=== PATIENT | female | born 1950 | race Caucasian/White ===

== ENCOUNTER 2019-02-16 02:29 | Inpatient (IN) ==
[2019-02-16] MEDS ORDERED: Naloxone 0.4 MG/ML INJ IVP PRN (03:17)
[2019-02-16] MEDS ORDERED: Artificial Tears SOLN 15 ML BOTTLE BOTH EYES PRN (03:49)
--- NOTE | 2019-02-16 03:49 | Internal Med History&Physical ---
<Femi Wakefield - Last Filed: 02/16/19 06:24> Date of Encounter: 02/16/19 Time of Encounter: 03:35 Internal Medicine - H&P: HPI Chief complaint: Altered mental status History of present illness: Ms. Cohen is a 68 year old female is transferred from [facility] because of altered mental status. Patient was brought in by EMS because she was found unresponsive. Most of the information was obtained from the ER notes [facility]. Approximately at 7:30 PM, patient took a handful of pills in front of her . called the police, and told his son to go and check on mom. Son called her and her speech was slurred and the phone was disconnected. EMS was called and they found the patient unresponsive wedged between the couch and unstable. Patient had agonal respiration , hypoxic, was given Narcan with no improvement. Patient was intubated and was brought to the ED at the [facility]. Her med list from [facility] showed that the patient had 90 pills filled yesterday of Amytriptaline 150 mg. Initial workup in the ED showed patient afebrile, hypotensive with the BP : 97/66, Pulse: 83, RR: 16,had a WBC 14.2. Patient's potassium was 3.1, EKG showed normal sinus rhythm with prolonged QTc at 486 . Her ABG was normal. Head CT was negative for any intracranial mass or hemorrhages. Patient's UA was positive for nitrite with large amount of leukocyte esterase, urine protein was 100. Patient's tox screen was positive for benzodiazepine. Patient was transferred to [facility] ICU for further management Past Med Surg Social Fam HX - Past Medical History Medical history: hypertension, other Additional medical history: hypothyroid, hydronephrosis, hearing impaired Psychiatric history: depression - Past Surgical History Surgical History: hysterectomy, thyroidectomy Additional surgical history: left neck cancer lesion, thyroid cancer nodule, right hand repair - Social History Smoking Status: Unknown if ever smoked Smokeless Tobacco Status: No Alcohol use: unknown Drug use: none Internal Medicine - H&P: Meds Amitriptyline HCl 150 mg PO HS 02/16/19 [History] Celecoxib [Celebrex] 200 mg PO DAILY 02/16/19 [History] Diclofenac Sodium [Voltaren] 75 mg PO BID 02/16/19 [History] Estradiol 0.5 mg PO DAILY 02/16/19 [History] Ibuprofen [Motrin] 800 mg PO Q8HR 02/16/19 [History] Levothyroxine [Synthroid] 88 mcg PO 0630 02/16/19 [History] Lisinopril [Zestril] 40 mg PO DAILY 02/16/19 [History] Oxybutynin [Ditropan] 5 mg PO HS 02/16/19 [History] Allergy/AdvReac Type Severity Reaction Status Date / Time fentanyl [From Duragesic] AdvReac Mild Itching Verified 02/16/19 00:18 ROS unobtainable: due to endotracheal tube All Systems PM: A 10-system review of systems was performed and is negative for pertinent findings except as documented above in the HPI. - Constitutional Vitals: Pulse Resp BP Pulse Ox 75 14 109/94 100 02/16/19 03:25 02/16/19 03:25 02/16/19 03:25 02/16/19 03:25 Exam: Gen.: Vitals noted. No acute distress. Alert, awake and oriented * [address], and time, well developed, well-nourished resting comfortably in bed. Pleasant. HEENT: oropharynx clear, Normocephalic, atraumatic, MMM Neck: supple, no JVD, no lymphadenopathy, no carotid bruit. Cardiac: RRR, no murmur, +S1/S2, No BLE edema, PMI non-displaced Pulmonary: CTA bilaterally, no wheezes, rales or rhonchi, equal chest expansion, unlabored breathing Abdomen: soft, nontender, BS noted, no guarding, mildly distended. No organomegaly, no pulsatile masses, Skin: warm and dry, no visible lesions. Feels warm, clammy, no rashes, no lesions, no erythema MSK: ROM not assessed. no joint swelling noted, gait not assessed while in bed. Non tender calf or clubbing, no cyanosis/clubbing/ or edema Neuro: A&O, moves all extremities, no focal deficits, sensation intact Psych: Appropriate mood and behavior, normal speech. Internal Med - H&P Results - Labs CBC & Chem 7: 02/16/19 03:57 02/16/19 03:57 - Assessment and Plan (1) Metabolic encephalopathy Current Visit: Yes Status: Acute Assessment and plan: -Likely due to overdosing on BDZ , with UTI on UA -Patient UDS was positive for benzodiazepine. -UA was positive for large leukocyte esterase and nitrites. -Patient's blood glucose was 306. -Her BMP showed hypokalemia at 3.1 -Head CT was negative for any infarcts or hemorrhage -EKG showed QTc prolongation -Patient was found to be unresponsive, had agonal respirations and was intubated and sedated at [facility] ED PLAN: - Supportive care -No indications for flumazenil because we do not know if patient has any history of seizures -Will undergo spontaneous breathing trial when able -Will eventually need a psychiatry evaluation once she is stable to be stepped down to the floor (2) UTI (urinary tract infection) Current Visit: Yes Status: Acute Assessment and plan: -Patient's UA was positive for nitrite and large amount of leukocyte esterase - Patient has an elevated WBC: 14.2 which was likely hemoconcentrated as it got better to 8.5 after fluids -Patient got one-time dose of Rocephin in the ED at [facility] -Unable to do a physical exam on the patient will look for a CVA tenderness or suprapubic pain because patient is intubated and sedated -Will continue her on Rocephin Qualifiers: Qualified Code(s): N39.0 - Urinary tract infection, site not specified; R31.9 - Hematuria, unspecified (3) DVT prophylaxis Current Visit: Yes Status: Acute Assessment and plan: scds - Time Spent With Patient Total time spent is greater than 50% in coordination of care (as documented) at patient's floor/unit and/or counseling patient: <Isaac Peguero A - Last Filed: 02/16/19 07:42> Date of Encounter: 02/16/19 Internal Medicine - H&P: HPI History of present illness: Ms. Cohen is a 68 year old female All Systems PM: A 10-system review of systems was performed and is negative for pertinent findings except as documented above in the HPI. - Constitutional Vitals: Temp Pulse Resp BP Pulse Ox 96.8 F L 102 17 97/63 100 02/16/19 04:35 02/16/19 07:21 02/16/19 06:36 02/16/19 06:36 02/16/19 06:36 Internal Med - H&P Results - Labs CBC & Chem 7: 02/16/19 03:57 02/16/19 03:57 Labs: Short CBC 02/16/19 Range/Units 03:57 WBC 8.5 (4.3-11.1) K/mcL Hgb 9.7 L (11.5-15.4) g/dL Hct 30.9 L (35.3-44.9) % Plt Count 277 (140-400) K/mcL Neutrophils # 6.8 (1.6-8.9) K/mcL BMP 02/16/19 03:57 Sodium 145 D Potassium 4.1 D Chloride 106 Carbon Dioxide 27 BUN 16 Creatinine 0.76 Glucose 96 Calcium 8.6 Cardiac Enzymes 02/16/19 Range/Units 03:57 Troponin I < 0.03 (< 0.04) ng/mL Liver Function 02/16/19 Range/Units 03:57 Total Bilirubin 0.3 (0.3-1.0) mg/dL AST 24 (13-39) Units/L ALT 25 (7-52) Units/L Alkaline Phosphatase 98 (34-104) Units/L Albumin 3.6 (3.5-5.7) g/dL - ABG Interpretation ABG results: 02/16/19 03:51 ABG pH 7.40 ABG pCO2 47 H ABG pO2 240 H ABG HCO3 29 H ABG Total CO2 31 H ABG O2 Saturation 100 H ABG Base Excess 4 H - Impressions ITS Impressions KUB X-Ray 02/16/19 03:49 IMPRESSION: The tip of the enteric tube is in the distal stomach or proximal duodenum. Indeterminate bowel-gas pattern. D/ / Cisco Negrete MD / Cisco Negrete MD Interpreting Provider: Cisco Negrete MD - Time Spent With Patient Total time spent is greater than 50% in coordination of care (as documented) at patient's floor/unit and/or counseling patient: - Attending Attestation I performed a history and physical examination of the patient and discussed her management with the resident. I reviewed the resident's note and agree with the assessment and plan of care. At least 30 minutes of critical care time was spent in the management of this patient. In short patient is a 68-year-old female with a past medical history of hypertension, hyperlipidemia and hypothyroidism who was reportedly found unresponsive by EMS. Per her , with whom she had been fighting with early in the day, had taken a handful of pills just prior to self and is vomiting at approximately 7:30 in the evening. When EMS arrived patient was found wedged between the couch and table and was unresponsive. Was reports tobacco respirations and hypoxia. No improvement with Narcan. Patient intubated and initially was brought to [facility]. Poison control was contacted due to concern for amitriptyline overdose. Initial EKG showed a widened QT interval and 2 A of bicarbonate as well as 2 g of magnesium was given. Patient subsequent to transferred to [facility] for further management. Repeat EKG was obtained here which showed normal QRS duration and improvement in QTC. No further recommendations was given. We will continue supportive for now. Will likely need psych consult once extubated and stable from a medical standpoint.
[2019-02-16 03:54] LABS: ABG Base Excess 4 mEq/L (-2 to 3); ABG HCO3 29 mEq/L (21-27); ABG Oxygen Saturation 100 % (95-98); ABG PCO2 47 mmHg (35-45); ABG PO2 240 mmHg (85-104); ABG TCO2 31 mEq/L (20-26); Blood Gas Modality PRVC; Blood Gas PEEP 5 cm H2O; Blood Gas Respiration Rate 14; Blood Gas VT 400 cc
[2019-02-16 04:10] LABS: Basophils % 0.2 %; Eosinophils % 0.5 %; Hematocrit 30.9 % (35.3-44.9); Hemoglobin 9.7 g/dL (11.5-15.4); Immature Granulocytes % 0.2 % (0-4); Lymphocytes # 1.2 K/mcL (0.6-4.6); Lymphocytes % 14.3 %; Mean Corpuscular HGB Conc 31.4 g/dL (31.6-35.5); Mean Corpuscular Hemoglobin 28.5 pg (28.0-33.3); Mean Corpuscular Volume 90.9 fL (83.0-100.0); Mean Platelet Volume 10.2 fL (9.4-12.4); Monocytes # 0.4 K/mcL (0.0-1.3); Monocytes % 5.1 %; Neutrophils # 6.8 K/mcL (1.6-8.9); Platelet Count 277 K/mcL (140-400); Red Cell Distribution Width 12.9 % (11.5-14.5); Segmented Neutrophils % 79.7 %
[2019-02-16 04:18] LABS: INR 1.1
[2019-02-16 04:21] LABS: Activated Partial Thrombo Time 29.3 Seconds (26.0-36.0)
[2019-02-16 04:37] LABS: Troponin I < 0.03 ng/mL (< 0.04)
[2019-02-16 05:30] LABS: Alanine Aminotransferase 25 Units/L (7-52); Albumin 3.6 g/dL (3.5-5.7); Albumin/Globulin Ratio 1.2 (1.1-2.2); Alkaline Phosphatase 98 Units/L (34-104); Aspartate Amino Transferase 24 Units/L (13-39); BUN/Creatinine Ratio 21 (6-26); Bilirubin,Total 0.3 mg/dL (0.3-1.0); Blood Urea Nitrogen 16 mg/dL (8-23); Calcium 8.6 mg/dL (8.6-10.3); Carbon Dioxide 27 mEq/L (23-29); Chloride 106 mEq/L (98-107); Glucose 96 mg/dL (70-105); Magnesium 2.7 mg/dL (1.6-2.6); Osmolality,Calculated 301 (280-300); Phosphorous 3.1 mg/dL (2.7-4.5); Potassium 4.1 mEq/L (3.5-5.1); Sodium 145 mEq/L (136-145); Total Protein 6.6 g/dL (6.4-8.9); eGFR For Non-African Americans > 60 (> 60)
[2019-02-16] MEDS ORDERED: 0.9 % Sodium Chloride 1,000 ML IVC SCH (05:30)
[2019-02-16] MEDS: Artificial Tears SOLN 15 ML BOTTLE BOTH EYES SCH ×5 (05:34→20:21)
--- NOTE | 2019-02-16 09:09 | Pulmonology Consult Note ---
<AnastaciaSherly manuel M - Last Filed: 02/16/19 09:33> Date of Encounter: 02/16/19 Medications and Allergies Amitriptyline HCl 300 mg PO HS 02/16/19 [History] Diclofenac Sodium [Voltaren] 75 mg PO BID PRN 02/16/19 [History] Estradiol 0.5 mg PO QAM 02/16/19 [History] Ketoconazole 1 appl TP 3XW 02/16/19 [History] Levothyroxine [Synthroid] 88 mcg PO DAILY 02/16/19 [History] Lisinopril [Zestril] 40 mg PO DAILY 02/16/19 [History] Oxybutynin [Ditropan] 5 mg PO HS 02/16/19 [History] Allergy/AdvReac Type Severity Reaction Status Date / Time fentanyl [From Duragesic] AdvReac Mild "ITCH ALL Verified 02/16/19 11:57 OVER" All Systems: The remainder of the systems were reviewed and are negative Physical Examination Vital Signs: Vital Signs, Last 4 Hours Temp Pulse Resp BP Pulse Ox 02/16/19 09:00 95 16 113/67 100 02/16/19 08:00 88 14 119/74 100 02/16/19 07:50 17 115/79 100 02/16/19 07:21 102 02/16/19 07:00 98.5 F 102 16 101/67 100 02/16/19 06:36 17 97/63 100 02/16/19 06:00 78 14 92/55 100 Ventilator Settings Ventilator Settings: Ventilator Settings, Last 8 Hours Ventilator Tidal Volume 400 Setting Ventilator Tidal Volume 400 Setting Ventilator Tidal Volume 400 Setting Ventilator Tidal Volume 400 Setting Ventilator Tidal Volume 400 Setting Ventilator Respiratory Rate 14 Setting Ventilator Respiratory Rate 14 Setting Ventilator Respiratory Rate 14 Setting Ventilator Respiratory Rate 14 Setting Ventilator Respiratory Rate 14 Setting Actual Respiratory Rate 17 Actual Respiratory Rate 17 Actual Respiratory Rate 14 Actual Respiratory Rate 14 Actual Respiratory Rate 14 Actual Respiratory Rate 14 Positive End Expiratory 5 Pressure Positive End Expiratory 5 Pressure Positive End Expiratory 5 Pressure Positive End Expiratory 5 Pressure Positive End Expiratory 5 Pressure Positive End Expiratory 5 Pressure Peak Inspiratory Airway 10 Pressure Peak Inspiratory Airway 10 Pressure Peak Inspiratory Airway 17 Pressure Peak Inspiratory Airway 16 Pressure Peak Inspiratory Airway 16 Pressure Peak Inspiratory Airway 15 Pressure Results - Laboratory Findings CBC and BMP: 02/16/19 03:57 02/16/19 03:57 ABG ABG pH 7.40 pH Units (7.32-7.45) 02/16/19 03:51 ABG pCO2 47 mmHg (35-45) H 02/16/19 03:51 ABG pO2 240 mmHg (85-104) H 02/16/19 03:51 ABG O2 Saturation 100 % (95-98) H 02/16/19 03:51 PT/INR, D-dimer PT 12.0 Seconds (9.4-12.1) 02/16/19 03:57 Abnormal lab findings: Abnormal lab results RBC 3.40 M/mcL (3.82-4.97) L 02/16/19 03:57 Hgb 9.7 g/dL (11.5-15.4) L 02/16/19 03:57 Hct 30.9 % (35.3-44.9) L 02/16/19 03:57 MCHC 31.4 g/dL (31.6-35.5) L 02/16/19 03:57 ABG pCO2 47 mmHg (35-45) H 02/16/19 03:51 ABG pO2 240 mmHg (85-104) H 02/16/19 03:51 ABG HCO3 29 mEq/L (21-27) H 02/16/19 03:51 ABG Total CO2 31 mEq/L (20-26) H 02/16/19 03:51 ABG O2 Saturation 100 % (95-98) H 02/16/19 03:51 ABG Base Excess 4 mEq/L (-2 to 3) H 02/16/19 03:51 Calculated Osmolality 301 (280-300) H 02/16/19 03:57 Magnesium 2.7 mg/dL (1.6-2.6) H 02/16/19 03:57 - Clinical Findings Intake & Output: Intake & Output 02/15/19 02/16/19 02/16/19 23:59 07:59 15:59 Intake Total Output Total 875 / 875 Balance -863 / -863 Weight 68.8 kg Consult Discharge Plan - Plan Referrals: NONE,PCP [Primary Care Provider] - - Attending Attestation I examined this patient and my medical decision-making was reviewed with the Resident Physician. I agree with the documented findings, disposition and treatment plan as described except to the extent set forth below. Patient seen and examined. Labs, radiology, chart personally reviewed. Agree with resident's history and physical, assessment, plan with following comments: [employer] DATA SOFTWARE ENGINEER: Patient follows commands, however she still have weakness and not fully awake and will continue holding Any sedation for the vent synchrony. Pulmonary: Acceptable oxygenation and ventilation and they expect when she is more awake we will be able to extubate her. Cardiovascular: stable and continue to monitor for cardiac function and rhythm because of the side effect of the medication. GI: Nutrition per dietary and GI prophylaxis per routine Heme: DVT prophylaxis per routine Renal; urine out put and renal funtion reviewed Endorcine: blood glucose is monitored Lines: all lines checked and no evidence of infections Skin: skin care to prevent pressure ulcers per nursing routine care Patient will need psych consult when we extubate. <Jose L Mchugh - Last Filed: 02/16/19 14:57> Date of Encounter: 02/16/19 Time of Encounter: 09:09 Assessment and Plan (1) Drug overdose Current Visit: Yes Status: Acute Patient took approximately 50 tablets of 150 mg amitriptyline She was found unresponsive by EMS and was transported to [place] ED She was intubated and transferred to [facility] ICU Poison control was consulted early in admission and recommended supportive care She was successfully weaned off sedation and extubated this a.m. and is currently hemodynamically stable and alert and oriented Psychiatry evaluated the patient and recommended psychiatric admission once pat ient is stable Plan to monitor for 1 more day due to prolonged half-life of amitriptyline Anticipate transfer from ICU to geriatric psychiatry unit when stable Qualifiers: Encounter type: initial encounter Injury intent: intentional self-harm Qualified Code(s): T50.902A - Poisoning by unspecified drugs, medicaments and biological substances, intentional self-harm, initial encounter (2) Suicide attempt by drug ingestion Current Visit: Yes Status: Acute Patient states she does not want to , states she was trying to go to sleep However she did take a extreme amount of medication and did so during an emotional fight with She also has a history of depression, and mentions previous similar occurrences to this episode We do not however have any documentation of previous hospitalizations for suicide attempts or psychiatric evaluation Psychiatry following, appreciate recommendations Qualifiers: Encounter type: initial encounter Qualified Code(s): T50.902A - Poisoning by unspecified drugs, medicaments and biological substances, intentional self- harm, initial encounter (3) Metabolic encephalopathy Current Visit: Yes Status: Resolved Patient was originally unresponsive secondary to medication overdose Patient was successfully weaned off sedation this morning and is currently alert and oriented Encephalopathy resolved, we will continue to monitor (4) UTI (urinary tract infection) Current Visit: Yes Status: Acute Urinalysis on admission demonstrated elevated protein, glucose, ketones, blood, nitrites, leukocyte esterase, red blood cells, white blood cells, bacteria She is not currently complaining of any dysuria, hematuria, pyuria, any other urinary issues She was started on Rocephin at admission We will likely continue Rocephin for 5 day course which will be completed on 02/20/19 Qualifiers: Urinary tract infection type: acute cystitis Hematuria presence: without hematuria Qualified Code(s): N30.00 - Acute cystitis without hematuria (5) DVT prophylaxis Current Visit: Yes Status: Acute Subcutaneous heparin History of Present Illness Consult date: 02/16/19 Requesting physician: Isaac Peguero Reason for consult: other (Intubation) Chief complaint: Intentional overdose History of present illness: Patient is a 68-year-old female with a past medical history of hypertension, hypothyroidism, depression. Family called police after patient took a large amount of amitriptyline in front of her . When EMS responded the patient was found unresponsive. She was taken to [facility] ED and was intubated due to respiratory distress, either via squad or at ED. Patient was then transferred to [facility] ICU for vent management and intentional overdose management. Poison control was called who recommended supportive care. Patient was managed on the vent this morning and was weaned o ff sedation and eventually successfully extubated. After extubation the patient was found to be alert and oriented, hemodynamically stable, and psychiatry was consulted for evaluation. On speaking with the patient she states that she has been having marital issues at home with her and has been feeling depressed. She states she took approximately 50 pills of amitriptyline in order to sleep not to kill herself. Apparently she then attempted to vomit but was unable to. That is apparently last thing she remembers. She also vaguely mentions some previous similar occurrences. Past Med Surg Social Fam HX - Past Medical History Medical history: hypertension, other Additional medical history: hypothyroid, hydronephrosis, hearing impaired Psychiatric history: depression - Past Surgical History Surgical History: hysterectomy, thyroidectomy Additional surgical history: left neck cancer lesion, thyroid cancer nodule, right hand repair - Social History Smoking Status: Unknown if ever smoked Smokeless Tobacco Status: No Alcohol use: unknown Drug use: none All Systems: The remainder of the systems were reviewed and are negative - Constitutional Constitutional: no chills, no fever(s) - EENT Nose, mouth and throat: abnormal hearing, no dizziness, no headache(s) - Cardiovascular Cardiovascular: no chest pain, no dyspnea, no irregular heart rhythm - Respiratory Respiratory: no cough, no dyspnea on exertion - Gastrointestinal Gastrointestinal: no abdominal pain, no nausea, no vomiting - Genitourinary Genitourinary: no difficulty urinating, no urinary incontinence - Musculoskeletal Musculoskeletal: no weakness, no numbness - Integumentary Integumentary: no erythema, no rash - Neurological Neurological: no abnormal speech, no focal weakness - Psychiatric Psychiatric: depression, no suicidal ideation - Endocrine Endocrine: no fatigue, no palpitations - Hematologic/Lymphatic Hematologic/Lymphatic: no easy bruising, no lymphadenopathy Physical Examination Vital Signs: Vital Signs, Last 4 Hours Temp Pulse Resp BP Pulse Ox 02/16/19 08:00 88 14 119/74 100 02/16/19 07:50 17 115/79 100 02/16/19 07:21 102 02/16/19 07:00 98.5 F 102 16 101/67 100 02/16/19 06:36 17 97/63 100 02/16/19 06:00 78 14 92/55 100 General appearance: no acute distress Eyes: nonicteric ENT: oropharynx moist Neck: supple Effort: normal Inspection: normal Auscultation: bilateral: clear Cardiovascular: regular rate and rhythm Gastrointestinal: normoactive bowel sounds Integumentary: other (There is a small patch of erythema located at antecubital IV site on right upper extremity, skin otherwise normal) Extremities: no cyanosis, no edema Musculoskeletal: no deformities Gait: normal posture normal mental status, non-focal exam, other (Patient is alert and oriented) depressed, tearful, other (Patient denies suicidal ideation. Does admit to depression.) Ventilator Settings Ventilator Settings: Ventilator Settings, Last 8 Hours Ventilator Tidal Volume 400 Setting Ventilator Tidal Volume 400 Setting Ventilator Tidal Volume 400 Setting Ventilator Tidal Volume 400 Setting Ventilator Tidal Volume 400 Setting Ventilator Respiratory Rate 14 Setting Ventilator Respiratory Rate 14 Setting Ventilator Respiratory Rate 14 Setting Ventilator Respiratory Rate 14 Setting Ventilator Respiratory Rate 14 Setting Actual Respiratory Rate 17 Actual Respiratory Rate 17 Actual Respiratory Rate 14 Actual Respiratory Rate 14 Actual Respiratory Rate 14 Actual Respiratory Rate 14 Positive End Expiratory 5 Pressure Positive End Expiratory 5 Pressure Positive End Expiratory 5 Pressure Positive End Expiratory 5 Pressure Positive End Expiratory 5 Pressure Positive End Expiratory 5 Pressure Peak Inspiratory Airway 10 Pressure Peak Inspiratory Airway 10 Pressure Peak Inspiratory Airway 17 Pressure Peak Inspiratory Airway 16 Pressure Peak Inspiratory Airway 16 Pressure Peak Inspiratory Airway 15 Pressure Results - Laboratory Findings CBC and BMP: 02/16/19 03:57 02/16/19 03:57 ABG ABG pH 7.40 pH Units (7.32-7.45) 02/16/19 03:51 ABG pCO2 47 mmHg (35-45) H 02/16/19 03:51 ABG pO2 240 mmHg (85-104) H 02/16/19 03:51 ABG O2 Saturation 100 % (95-98) H 02/16/19 03:51 PT/INR, D-dimer PT 12.0 Seconds (9.4-12.1) 02/16/19 03:57 Abnormal lab findings: Abnormal lab results RBC 3.40 M/mcL (3.82-4.97) L 02/16/19 03:57 Hgb 9.7 g/dL (11.5-15.4) L 02/16/19 03:57 Hct 30.9 % (35.3-44.9) L 02/16/19 03:57 MCHC 31.4 g/dL (31.6-35.5) L 02/16/19 03:57 ABG pCO2 47 mmHg (35-45) H 02/16/19 03:51 ABG pO2 240 mmHg (85-104) H 02/16/19 03:51 ABG HCO3 29 mEq/L (21-27) H 02/16/19 03:51 ABG Total CO2 31 mEq/L (20-26) H 02/16/19 03:51 ABG O2 Saturation 100 % (95-98) H 02/16/19 03:51 ABG Base Excess 4 mEq/L (-2 to 3) H 02/16/19 03:51 Calculated Osmolality 301 (280-300) H 02/16/19 03:57 Magnesium 2.7 mg/dL (1.6-2.6) H 02/16/19 03:57 - Diagnostic Findings Chest x-ray: report reviewed, image reviewed (ET tube in place, approximately 2- 3 cm above the valdemar. Chest x-ray otherwise normal.) - Clinical Findings Intake & Output: Intake & Output 02/15/19 02/16/19 02/16/19 23:59 07:59 15:59 Intake Total Output Total 875 / 875 Balance -863 / -863 Weight 68.8 kg
[2019-02-16] MEDS: cefTRIAXone 1,000 MG in Water for inj. (sterile) 20 ML 10 ML IVPB SCH (09:16)
[2019-02-16] MEDS: Chlorhexidine Rinse 15 ML MOUTHWASH MM SCH ×2 (09:17→20:21)
[2019-02-16] MEDS: Pantoprazole 40 MG VIAL IVP SCH (12:04)
--- NOTE | 2019-02-16 13:43 | Consult Note ---
Date of Encounter: 02/17/19 Time of Encounter: 13:00 Assessment & Recommendation (1) Major depressive disorder, recurrent, severe w/o psychotic behavior Current visit: Yes Status: Acute Assessment & Recommendation: -Although patient currently denies that her recent overdose was a suicide attempt, the severity of the attempt is highly suspicious for an intentional overdose, as she continues to report she took 50 of her amitriptyline. As such, she is seen to need further psychiatric tables patient on an inpatient unit. Recommend transfer to [facility] -Recommend not restarting amitriptyline due to recent overdose -Continue one-to-one sitter -Recommend marital counseling for patient and her -Will continue to follow while inpatient History of Present Illness Patient: new to practice Requesting Physician: Venita Ervin MD Reason for consult: Overdose History of present illness: Ms. Cohen is a 68 year old female with a past psychiatric history of depression who is admitted on 2018 and who is consulted to psychiatry for a possible intentional overdose. Records state that patient had been fighting with her family all day. At around 1930, reports state that patient painful pills in front of her and then attempted to vomit them up. and called the police, and they cleared the home. then stated he wanted divorce, packed up his things, and left. He asked his son to call his mother at some point in the night to check up on her. Reports state that when so-called, his mother's speech was slurred. EMS was then called to the home, who found the patient unresponsive with agonal respirations and hypoxic. Patient was given Narcan which did not improve her status. She was then intubated and taken to the hospital. EMS brought an empty pill of amitriptyline filled in December of this year. With her home pharmacy shows that patient also received a prescription for amitriptyline 150 mg dispense 90 the day of admission. Report states the patient said that she took about 50 pills in order for her to sleep and not to . Today, nursing staff reports that her daughter does confirm that the patient did try to vomit after she took the pills but was unable to. When speaking with the patient, she reports that her got mad yesterday because she put the wrong gas and the lawnmower. She reports that they have had marital discourse for the past few weeks at least. She explains, "I cannot do anything right." She reports that she got so mad that she believes she lost her memory. She explains that when she gets very angry, she "cannot think, cannot talk." He reports that she is unable to remember taking the medication and was not able to tell this provider how many she took. When asked if she went to harm herself yesterday, she says "I do not think so." She continues, "I do not want to kill myself." She does admit that her wants a divorce and that she does not believe in divorce. She does explain that yesterday, she "wanted some rest and have a nice conversation with him." When asked why she would have taken so many pills, she states, "I do not think I was thinking right." Patient does admit to having a past history of depression and is prescribed amitriptyline by her PCP. She does admit to having a large pill that she breaks in half for anxiety, stating she received a prescription "a long time ago." She does not know the name of this pill. She reports taking it at times, though rarely and not every day. Patient denies a history of suicidal ideation. She denies a history of suicidal attempt. She reports protective factors of her grandchildren, not wanting to , thinking it is "stupid for people to try to kill themselves." She reports that she has 2 old rifles at home that do not shoot, and she denies ammunition for these guns. She does report that her has a pistol but reports that it is locked up, and she does not have access to the chen. She explains that, currently, she does not know if she is depressed. She is slightly perseverative on her 's ill actions and her irritation with him. She reports that she is "mixed" anxiety. She admits to recent poor sleep. She denies issues of appetite. She denies current SI, HI, and AVH. CC: Venita Ervin MD Past Med Surg Social Fam HX - Past Medical History Medical history: hypertension, other - Past Psychiatric History Psychiatric history: Reports: depression. Denies: prior suicide attempt Family psychiatric history: Unknown Family History of Suicide: Unknown - Past Surgical History Surgical History: hysterectomy, thyroidectomy - Social History Smoking Status: Never smoker Smokeless Tobacco Status: No Alcohol use: none Drug use: none Occupational status: other Current living situation: With Family Activity Level: Other Medications & Allergies Ketoconazole 1 appl TP 3XW 02/16/19 [History] Levothyroxine [Synthroid] 88 mcg PO DAILY 02/16/19 [History] Lisinopril [Zestril] 40 mg PO DAILY 02/16/19 [History] Oxybutynin [Ditropan] 5 mg PO HS 02/16/19 [History] RX: Amitriptyline HCl 300 mg PO HS 02/16/19 [History] RX: Diclofenac Sodium [Voltaren] 75 mg PO BID PRN 02/16/19 [History] RX: Estradiol 0.5 mg PO QAM 02/16/19 [History] Allergy/AdvReac Type Severity Reaction Status Date / Time fentanyl [From Duragesic] AdvReac Mild "ITCH ALL Verified 02/16/19 11:57 OVER" Review of Systems Ears, Nose, Throat: Reports: other (Dryness of the lips) Psychiatric: Reports: depression (Does not know she is depressed), anxiety, abnormal sleep pattern. Denies: suicidal ideation, change in appetite, homicidal ideation, auditory hallucinations, visual hallucinations Psychiatry Exam - Constitutional Vitals: Temp Pulse Resp BP Pulse Ox 98.5 F 89 20 125/83 100 02/16/19 11:00 02/16/19 12:00 02/16/19 12:00 02/16/19 12:00 02/16/19 12:00 General appearance: age & developmentally appropriate, well-groomed, well- nourished, average Additional observations: Dryness to lips noted Old, uneven eyeliner noted - Musculoskeletal Gait: other (Not assessed) Station: relaxed Strength & Tone: normal for patient (Grossly) - Psychiatric Patient Orientation: Yes Person, Yes Time, Yes Place, Yes Circumstance Level of alertness: Alert, Follows commands Behavior: calm, cooperative Psychomotor activity: Normal Eye Contact: Maintains Eye Contact Mood Description: Euthymic/stable Patient description of mood: "I do not know" Affect description: congruent with mood, full range Speech Volume: Soft/Quiet Speech pattern: normal rate, normal rhythm, normal tone, fluent, spontaneous, appropriate, garbled (mildly, likely due to dryness of the mouth) Language & Vocabulary: consistent with education Thought Process: Logical, Linear, Goal Oriented, Perseveration (spoke often about marital disputes, even when this provider asked about other topics. Did not appear to be due to disorganization.) Thought Content: No Suicidal ideation, No Homicidal ideation, No Overt delusions Perceptual Disturbances: No Reacting to internal stimuli, No Auditory hallucinations, No Visual hallucinations Attention Span Ability: Capable of Focused Attention Memory Description: Grossly Intact Patient Reliability: Questionable Historian Fund of knowledge: Yes aware of current events Intelligence Estimate: Average Judgment: Limited Insight: Partial Results - Drug Levels and Toxicology Drug Levels and Toxicology: None noted this a.m. - Labs Labs: Laboratory Last Values WBC 8.5 K/mcL (4.3-11.1) 02/16/19 03:57 RBC 3.40 M/mcL (3.82-4.97) L 02/16/19 03:57 Hgb 9.7 g/dL (11.5-15.4) L 02/16/19 03:57 Hct 30.9 % (35.3-44.9) L 02/16/19 03:57 MCV 90.9 fL (83.0-100.0) 02/16/19 03:57 MCH 28.5 pg (28.0-33.3) 02/16/19 03:57 MCHC 31.4 g/dL (31.6-35.5) L 02/16/19 03:57 RDW 12.9 % (11.5-14.5) 02/16/19 03:57 Plt Count 277 K/mcL (140-400) 02/16/19 03:57 MPV 10.2 fL (9.4-12.4) 02/16/19 03:57 Immature Gran % 0.2 % (0-4) 02/16/19 03:57 Seg Neutrophils % 79.7 % 02/16/19 03:57 Lymphocytes % 14.3 % 02/16/19 03:57 Monocytes % 5.1 % 02/16/19 03:57 Eosinophils % 0.5 % 02/16/19 03:57 Basophils % 0.2 % 02/16/19 03:57 Neutrophils # 6.8 K/mcL (1.6-8.9) 02/16/19 03:57 Lymphocytes # 1.2 K/mcL (0.6-4.6) 02/16/19 03:57 Monocytes # 0.4 K/mcL (0.0-1.3) 02/16/19 03:57 Eosinophils # 0.0 K/mcL (0.0-0.6) 02/16/19 03:57 Basophils # 0.0 K/mcL (0.0-0.2) 02/16/19 03:57 PT 12.0 Seconds (9.4-12.1) 02/16/19 03:57 INR 1.1 02/16/19 03:57 APTT 29.3 Seconds (26.0-36.0) 02/16/19 03:57 ABG pH 7.40 pH Units (7.32-7.45) 02/16/19 03:51 ABG pCO2 47 mmHg (35-45) H 02/16/19 03:51 ABG pO2 240 mmHg (85-104) H 02/16/19 03:51 ABG HCO3 29 mEq/L (21-27) H 02/16/19 03:51 ABG Total CO2 31 mEq/L (20-26) H 02/16/19 03:51 ABG O2 Saturation 100 % (95-98) H 02/16/19 03:51 ABG Base Excess 4 mEq/L (-2 to 3) H 02/16/19 03:51 Lorenzo Test N/A 02/16/19 03:51 Respiration Rate 14 02/16/19 03:51 O2 Delivery Device Adult Vent 02/16/19 03:51 Blood Gas Modality PRVC 02/16/19 03:51 Inspired O2 60.0 (1-15=lpm th79-148=%) 02/16/19 03:51 Tidal Volume 400 cc 02/16/19 03:51 PEEP 5 cm H2O 02/16/19 03:51 Sodium 145 mEq/L (136-145) D 02/16/19 03:57 Potassium 4.1 mEq/L (3.5-5.1) D 02/16/19 03:57 Chloride 106 mEq/L (98-107) 02/16/19 03:57 Carbon Dioxide 27 mEq/L (23-29) 02/16/19 03:57 BUN 16 mg/dL (8-23) 02/16/19 03:57 Creatinine 0.76 mg/dL (0.60-1.20) 02/16/19 03:57 Est GFR ( Amer) > 60 (> 60) 02/16/19 03:57 Est GFR (Non-Af Amer) > 60 (> 60) 02/16/19 03:57 BUN/Creatinine Ratio 21 (6-26) 02/16/19 03:57 Glucose 96 mg/dL (70-105) 02/16/19 03:57 POC Glucose 80 mg/dL (70-99) 02/16/19 04:37 Calculated Osmolality 301 (280-300) H 02/16/19 03:57 Calcium 8.6 mg/dL (8.6-10.3) 02/16/19 03:57 Phosphorus 3.1 mg/dL (2.7-4.5) 02/16/19 03:57 Magnesium 2.7 mg/dL (1.6-2.6) H 02/16/19 03:57 Total Bilirubin 0.3 mg/dL (0.3-1.0) 02/16/19 03:57 AST 24 Units/L (13-39) 02/16/19 03:57 ALT 25 Units/L (7-52) 02/16/19 03:57 Alkaline Phosphatase 98 Units/L (34-104) 02/16/19 03:57 Troponin I < 0.03 ng/mL (< 0.04) 02/16/19 03:57 Serum Total Protein 6.6 g/dL (6.4-8.9) 02/16/19 03:57 Albumin 3.6 g/dL (3.5-5.7) 02/16/19 03:57 Globulin 3.0 g/dL (2.4-3.5) 02/16/19 03:57 Albumin/Globulin Ratio 1.2 (1.1-2.2) 02/16/19 03:57 - Impressions Impressions KUB X-Ray 02/16/19 03:49 IMPRESSION: The tip of the enteric tube is in the distal stomach or proximal duodenum. Indeterminate bowel-gas pattern. D/ / Cisco Negrete MD / Cisco Negrete MD Interpreting Provider: Cisco Negrete MD Consult Discharge Plan - Plan Referrals: NONE,PCP [Primary Care Provider] - - Attending Attestation I examined this patient and my medical decision-making was reviewed with the Resident Physician. I agree with the documented findings, disposition and treatment plan as described except to the extent set forth below. Spoke with client and this afternoon and they are in agreement with a mental health admission. Discussed a [facility] psych facility given client's age and they are open to the idea but would prefer a facility closer to their home if possible. Recommend a social work consult to look into placement options.
--- NOTE | 2019-02-16 15:22 | Electrocardiograph Report ---
[place] [address] Test Date: 2019-02-16 Pat Name: Blanca Cohen Department: 109 Room: [facility] Gender: F Hospital Admitting Clerk: : 1950 Requested By: Isaac Peguero Order Number: [id number] Reading MD: Russell Mcneal Measurements Intervals [place] Rate: 76 P: 70 FL: 187 QRS: -6 QRSD: 101 T: 70 QT: 438 QTc: 469 Interpretive Statements SINUS RHYTHM Electronically Signed On 02-16-2019 15:20:53 EDT by Russell Mcneal
[2019-02-16] MEDS: *HR* Heparin 5,000 UNIT/ML VIAL SQ SCH (18:04)
[2019-02-17] MEDS: Artificial Tears SOLN 15 ML BOTTLE BOTH EYES SCH ×2 (04:27→08:34)
[2019-02-17] MEDS ORDERED: Acetaminophen 325 MG TABLET PO PRN (04:46)
[2019-02-17 04:56] LABS: Basophils % 0.6 %; Eosinophils # 0.3 K/mcL (0.0-0.6); Eosinophils % 4.1 %; Hematocrit 32.3 % (35.3-44.9); Hemoglobin 10.1 g/dL (11.5-15.4); Immature Granulocytes % 0.3 % (0-4); Lymphocytes # 1.5 K/mcL (0.6-4.6); Lymphocytes % 22.3 %; Mean Corpuscular HGB Conc 31.3 g/dL (31.6-35.5); Mean Corpuscular Volume 92.8 fL (83.0-100.0); Mean Platelet Volume 10.3 fL (9.4-12.4); Monocytes # 0.4 K/mcL (0.0-1.3); Monocytes % 5.6 %; Neutrophils # 4.5 K/mcL (1.6-8.9); Platelet Count 260 K/mcL (140-400); Red Blood Count 3.48 M/mcL (3.82-4.97); Red Cell Distribution Width 13.3 % (11.5-14.5); Segmented Neutrophils % 67.1 %
[2019-02-17] MEDS: *HR* Heparin 5,000 UNIT/ML VIAL SQ SCH ×2 (05:21→18:02)
[2019-02-17 05:22] LABS: Blood Urea Nitrogen 12 mg/dL (8-23); Calcium 8.4 mg/dL (8.6-10.3); Carbon Dioxide 27 mEq/L (23-29); Chloride 106 mEq/L (98-107); Glucose 91 mg/dL (70-105); Osmolality,Calculated 291 (280-300); Potassium 3.6 mEq/L (3.5-5.1); Sodium 141 mEq/L (136-145)
[2019-02-17 05:29] LABS: BUN/Creatinine Ratio 19 (6-26); eGFR For Non-African Americans > 60 (> 60)
--- NOTE | 2019-02-17 08:05 | Pulmonology Progress Note ---
<DaniellaSherly M - Last Filed: 02/17/19 10:29> Date of Encounter: 02/17/19 Objective PUL Vital signs: Last Vital Signs Temp 98.7 F 02/17/19 08:00 Pulse 88 02/17/19 09:00 Resp 20 02/17/19 09:00 BP 112/73 02/17/19 09:00 Pulse Ox 98 02/17/19 09:00 Results - Laboratory Findings CBC and BMP: 02/17/19 04:33 02/17/19 04:33 ABG ABG pH 7.40 pH Units (7.32-7.45) 02/16/19 03:51 ABG pCO2 47 mmHg (35-45) H 02/16/19 03:51 ABG pO2 240 mmHg (85-104) H 02/16/19 03:51 ABG O2 Saturation 100 % (95-98) H 02/16/19 03:51 PT/INR, D-dimer PT 12.0 Seconds (9.4-12.1) 02/16/19 03:57 Abnormal lab findings: Abnormal lab results RBC 3.48 M/mcL (3.82-4.97) L 02/17/19 04:33 Hgb 10.1 g/dL (11.5-15.4) L 02/17/19 04:33 Hct 32.3 % (35.3-44.9) L 02/17/19 04:33 MCHC 31.3 g/dL (31.6-35.5) L 02/17/19 04:33 ABG pCO2 47 mmHg (35-45) H 02/16/19 03:51 ABG pO2 240 mmHg (85-104) H 02/16/19 03:51 ABG HCO3 29 mEq/L (21-27) H 02/16/19 03:51 ABG Total CO2 31 mEq/L (20-26) H 02/16/19 03:51 ABG O2 Saturation 100 % (95-98) H 02/16/19 03:51 ABG Base Excess 4 mEq/L (-2 to 3) H 02/16/19 03:51 Calcium 8.4 mg/dL (8.6-10.3) L 02/17/19 04:33 Magnesium 2.7 mg/dL (1.6-2.6) H 02/16/19 03:57 - Clinical Findings Intake & Output: Intake & Output 02/16/19 02/17/19 02/17/19 23:59 07:59 15:59 Intake Total 480 / 480 120 / 120 Output Total 172 / 172 875 / 875 Balance 308 / 308 -875 / -875 120 / 120 Weight 68.8 kg Consult Discharge Plan - Plan Referrals: NONE,PCP [Primary Care Provider] - - Attending Attestation I examined this patient and my medical decision-making was reviewed with the Resident Physician. I agree with the documented findings, disposition and treatment plan as described except to the extent set forth below. Patient seen and examined. Labs, radiology, chart personally reviewed. Agree with resident's history and physical, assessment, plan with following comments: [employer]: Patient follows commands, patient denies any suicidal thought that this time. However she needs to be cleared by the psychiatrist. As far as the antidepressant this will be deferred to the psychiatrist. Pulmonary: Acceptable oxygenation and ventilation and she was extubated yesterday Cardiovascular: stable and there is no any signs of any anticholinergic or cardiac events and poision control was notified GI: Nutrition per dietary and GI prophylaxis per routine Heme: DVT prophylaxis per routine Renal; urine out put and renal funtion reviewed. Garza catheter can be removed Endorcine: blood glucose is monitored Lines: all lines checked and no evidence of infections Skin: skin care to prevent pressure ulcers per nursing routine care Patient can be transferred to the floor <Jose L Mchugh - Last Filed: 02/17/19 19:19> Date of Encounter: 02/17/19 Time of Encounter: 08:05 Assessment and Plan (1) Drug overdose Current Visit: Yes Status: Resolved Patient took approximately 50 tablets of 150 mg amitriptyline She was found unresponsive by EMS and was transported to [facility] She was intubated and transferred to [facility] ICU Poison control was consulted early in admission and recommended supportive care She was successfully weaned off sedation and extubated and is currently hemodynamically stable and alert and oriented Psychiatry evaluated the patient and recommended psychiatric admission once patient is stable Transferred to floor Qualifiers: Encounter type: initial encounter Injury intent: intentional self-harm Qualified Code(s): T50.902A - Poisoning by unspecified drugs, medicaments and biological substances, intentional self-harm, initial encounter (2) Suicide attempt by drug ingestion Current Visit: Yes Status: Acute Patient states she does not want to , states she was trying to go to sleep However she did take a extreme amount of medication and did so during an em otional fight with She also has a history of depression, and mentions previous similar occurrences to this episode We do not however have any documentation of previous hospitalizations for latasha cide attempts or psychiatric evaluation Psychiatry following, appreciate recommendations Qualifiers: Encounter type: initial encounter Qualified Code(s): T50.902A - Poisoning by unspecified drugs, medicaments and biological substances, intentional self- harm, initial encounter (3) Metabolic encephalopathy Current Visit: Yes Status: Resolved Patient was originally unresponsive secondary to medication overdose Patient was successfully weaned off sedation and is currently alert and oriented Encephalopathy resolved (4) UTI (urinary tract infection) Current Visit: Yes Status: Ruled-out Ruled out, asymptomatic bacteriuria, Rocephin discontinued Qualifiers: Urinary tract infection type: acute cystitis Hematuria presence: without hematuria Qualified Code(s): N30.00 - Acute cystitis without hematuria (5) DVT prophylaxis Current Visit: Yes Status: Acute Subcutaneous heparin Subjective Principal diagnosis: Overdose Interval history: Patient has no acute complaints this morning, states she wants to go home. I informed her psychiatry is recommended she stay in the hospital. Objective PUL Vital signs: Last Vital Signs Temp 97.8 F 02/17/19 04:00 Pulse 87 02/17/19 07:24 Resp 13 02/17/19 07:24 BP 130/80 02/17/19 07:24 Pulse Ox 97 02/17/19 07:24 General appearance: no acute distress Eyes: nonicteric ENT: oropharynx moist Neck: supple Effort: normal Auscultation: bilateral: clear Cardiovascular: regular rate and rhythm Gastrointestinal: normoactive bowel sounds, soft, non-tender, non-distended Integumentary: normal Extremities: no cyanosis Musculoskeletal: no deformities Gait: normal posture normal mental status, non-focal exam depressed Results - Laboratory Findings CBC and BMP: 02/17/19 04:33 02/17/19 04:33 ABG ABG pH 7.40 pH Units (7.32-7.45) 02/16/19 03:51 ABG pCO2 47 mmHg (35-45) H 02/16/19 03:51 ABG pO2 240 mmHg (85-104) H 02/16/19 03:51 ABG O2 Saturation 100 % (95-98) H 02/16/19 03:51 PT/INR, D-dimer PT 12.0 Seconds (9.4-12.1) 02/16/19 03:57 Abnormal lab findings: Abnormal lab results RBC 3.48 M/mcL (3.82-4.97) L 02/17/19 04:33 Hgb 10.1 g/dL (11.5-15.4) L 02/17/19 04:33 Hct 32.3 % (35.3-44.9) L 02/17/19 04:33 MCHC 31.3 g/dL (31.6-35.5) L 02/17/19 04:33 ABG pCO2 47 mmHg (35-45) H 02/16/19 03:51 ABG pO2 240 mmHg (85-104) H 02/16/19 03:51 ABG HCO3 29 mEq/L (21-27) H 02/16/19 03:51 ABG Total CO2 31 mEq/L (20-26) H 02/16/19 03:51 ABG O2 Saturation 100 % (95-98) H 02/16/19 03:51 ABG Base Excess 4 mEq/L (-2 to 3) H 02/16/19 03:51 Calcium 8.4 mg/dL (8.6-10.3) L 02/17/19 04:33 Magnesium 2.7 mg/dL (1.6-2.6) H 02/16/19 03:57 - Clinical Findings Intake & Output: Intake & Output 02/16/19 02/17/19 02/17/19 23:59 07:59 15:59 Intake Total 480 / 480 Output Total 172 / 172 875 / 875 Balance 308 / 308 -875 / -875 Weight 68.8 kg
[2019-02-17] MEDS: Chlorhexidine Rinse 15 ML MOUTHWASH MM SCH (08:34)
[2019-02-17] MEDS: Pantoprazole 40 MG VIAL IVP SCH (08:43)
[2019-02-17] MEDS: cefTRIAXone 1,000 MG in Water for inj. (sterile) 20 ML 10 ML IVPB SCH (08:43)
[2019-02-17] MEDS ORDERED: Potassium Effervescent 25 MEQ TABLET.EFF PO ONE (11:15)
[2019-02-17] MEDS ORDERED: Naloxone 0.4 MG/ML INJ IVP PRN (12:40)
--- NOTE | 2019-02-17 15:29 | Electrocardiograph Report ---
[address] [address] Test Date: 2019-02-16 Pat Name: Blanca Cohen Department: 109 Room: 12 Gender: F Systems Testing Laboratory Technician: : 1950 Requested By: Jose L Mchugh Order Number: [id number] Reading MD: Galdino Scott Measurements Intervals [place] Rate: 86 P: 65 OK: 184 QRS: -26 QRSD: 112 T: 59 QT: 413 QTc: 456 Interpretive Statements SINUS RHYTHM Electronically Signed On 02-17-2019 15:27:55 EDT by Galdino Scott
[2019-02-18] MEDS: Acetaminophen 325 MG TABLET PO PRN (02:59)
[2019-02-18] MEDS: *HR* Heparin 5,000 UNIT/ML VIAL SQ SCH ×2 (05:22→18:27)
--- NOTE | 2019-02-18 09:03 | Discharge Summary ---
Orders not resulted at time of discharge: Pending orders 02/18/19 09:03 CMP [Comprehensive Metabolic Panel] Stat Complete Blood Count [HEME] Stat Date of Encounter: 02/18/19 Time of Encounter: 09:03 Hospital course: Ms. Cohen is a 68 year old female - Time Spent with Patient Total time spent providing and/or coordinating discharge services: - Discharge Medications Prescriptions: No Action Ketoconazole 1 appl TP 3XW Levothyroxine [Synthroid] 88 mcg PO DAILY Oxybutynin [Ditropan] 5 mg PO HS Amitriptyline HCl 300 mg PO HS Lisinopril [Zestril] 40 mg PO DAILY Estradiol 0.5 mg PO QAM Diclofenac Sodium [Voltaren] 75 mg PO BID PRN PRN Reason: Pain Home Medications: Amitriptyline HCl 300 mg PO HS 02/16/19 [History] Diclofenac Sodium [Voltaren] 75 mg PO BID PRN 02/16/19 [History] Estradiol 0.5 mg PO QAM 02/16/19 [History] Ketoconazole 1 appl TP 3XW 02/16/19 [History] Levothyroxine [Synthroid] 88 mcg PO DAILY 02/16/19 [History] Lisinopril [Zestril] 40 mg PO DAILY 02/16/19 [History] Oxybutynin [Ditropan] 5 mg PO HS 02/16/19 [History] Allergies/Adverse Reactions: Allergy/AdvReac Type Severity Reaction Status Date / Time fentanyl [From Duragesic] AdvReac Mild "ITCH ALL Verified 02/16/19 11:57 OVER" Date of admission: 02/16/19 02:29 Primary care physician: PCP NONE Consults: 02/16/19 03:14 Consult to Pulmonology [CONS] Routine Consulting Provider: [facility] Reason for Consult: Respiratory Failure Call Completed: No 02/16/19 11:20 Consult to Psychiatry [CONS] Routine Consulting Provider: Psychiatry [place] Reason consult: Other Other reason and/or additional details: Patient admitted overnight for intentional overdose on amitryptiline. Patient now successfully extubated, alert and oriented, and hemodynamically stable. She states she took approximately 50 amitryptiline in order to "sleep", that she did not want to kill herself. She describes marital issues. She makes vague references to previous similar occurences. Request psychiatry assessment and recommendations. Time Notified: 11:24 Call Completed: Yes - Constitutional Vitals: Temp Pulse Resp BP Pulse Ox 98.5 F 91 16 135/83 96 02/18/19 02:53 02/18/19 02:53 02/18/19 02:53 02/18/19 02:53 02/18/19 02:53 - Discharge Instructions Follow Up With: Ryan Wray MD [Non-Partnered Physician] -
[2019-02-18 10:09] LABS: Alanine Aminotransferase 30 Units/L (7-52); Albumin 3.9 g/dL (3.5-5.7); Albumin/Globulin Ratio 1.1 (1.1-2.2); Alkaline Phosphatase 121 Units/L (34-104); Aspartate Amino Transferase 25 Units/L (13-39); BUN/Creatinine Ratio 17 (6-26); Bilirubin,Total 0.4 mg/dL (0.3-1.0); Blood Urea Nitrogen 16 mg/dL (8-23); Calcium 9.2 mg/dL (8.6-10.3); Carbon Dioxide 26 mEq/L (23-29); Chloride 101 mEq/L (98-107); Globulin 3.4 g/dL (2.4-3.5); Glucose 150 mg/dL (70-105); Osmolality,Calculated 292 (280-300); Potassium 3.6 mEq/L (3.5-5.1); Sodium 139 mEq/L (136-145); Total Protein 7.3 g/dL (6.4-8.9); eGFR For Non-African Americans > 60 (> 60)
[2019-02-18 10:37] LABS: Basophils # 0.1 K/mcL (0.0-0.2); Basophils % 0.6 %; Eosinophils # 0.2 K/mcL (0.0-0.6); Eosinophils % 2.1 %; Hematocrit 35.1 % (35.3-44.9); Hemoglobin 11.3 g/dL (11.5-15.4); Immature Granulocytes % 0.2 % (0-4); Lymphocytes # 2.1 K/mcL (0.6-4.6); Lymphocytes % 24.2 %; Mean Corpuscular HGB Conc 32.2 g/dL (31.6-35.5); Mean Corpuscular Volume 90.2 fL (83.0-100.0); Mean Platelet Volume 10.1 fL (9.4-12.4); Monocytes # 0.5 K/mcL (0.0-1.3); Monocytes % 5.9 %; Neutrophils # 5.7 K/mcL (1.6-8.9); Platelet Count 356 K/mcL (140-400); Red Blood Count 3.89 M/mcL (3.82-4.97); Red Cell Distribution Width 12.9 % (11.5-14.5)
--- NOTE | 2019-02-18 14:10 | Internal Med Progress Note ---
<Lisa Hobbs N - Last Filed: 02/18/19 14:28> Hospitalist Progress Note - Encounter Date of Encounter: 02/18/19 Time of Encounter: 14:34 - Subjective Interval History: Patient was seen and evaluated at the bedside. She endorses no complaints or concerns this time, and states that she is feeling well today. She does have a sitter present at the bedside. Nursing staff reports no acute overnight events. - Exam Vitals: Temp Pulse Resp BP Pulse Ox 98.5 F 91 16 135/83 96 02/18/19 02:53 02/18/19 02:53 02/18/19 02:53 02/18/19 02:53 02/18/19 02:53 Exam: GENERAL: Adult female resting in bed comfortably in no acute distress. HEENT: Atraumatic and normocephalic. CARDIOVASCULAR: Regular rate and rhythm. S1 and S2 present. No murmurs, gallops, or rubs. RESPIRATORY: Clear to auscultation bilaterally. Chest rises and falls symmetrica lly without accessory muscle use. GASTROINTESTINAL: Abdomen is soft, nontender, nondistended. EXTREMITIES: No clubbing, cyanosis, or edema. SKIN: Warm, dry, and intact. NEUROLOGIC: Alert and oriented x3. Patient is cooperative with exam and answers questions appropriately. No apparent focal deficits. - Assessment and Plan (1) Drug overdose Current Visit: Yes Status: Resolved (2) DVT prophylaxis Current Visit: Yes Status: Acute Assessment and Plan: - Heparin 5000units Q12H. (3) Major depressive disorder, recurrent, severe w/o psychotic behavior Current Visit: Yes Status: Acute Assessment and Plan: History of depressive disorder controlled with home medication of amitriptyline. Patient arrived at the hospital after overdose of this medication; therefore, medication has been discontinued. Patient is currently awaiting placement at this facility with geriatric psychiatry services available. - Continue sitter with patient at all times. - Awaiting placement. Appreciate psychiatry recommendations. - Time Spent with Patient Total time spent is greater than 50% in coordination of care (as documented) at patient's floor/unit and/or counseling patient: Internal Medicine: Result - Labs CBC & Chem 7: 02/18/19 10:23 02/18/19 09:25 Labs: Short CBC 02/18/19 Range/Units 10:23 WBC 8.5 (4.3-11.1) K/mcL Hgb 11.3 L (11.5-15.4) g/dL Hct 35.1 L (35.3-44.9) % Plt Count 356 (140-400) K/mcL Neutrophils # 5.7 (1.6-8.9) K/mcL BMP 02/18/19 09:25 Sodium 139 Potassium 3.6 Chloride 101 Carbon Dioxide 26 BUN 16 Creatinine 0.93 Glucose 150 H Calcium 9.2 Liver Function 02/18/19 Range/Units 09:25 Total Bilirubin 0.4 (0.3-1.0) mg/dL AST 25 (13-39) Units/L ALT 30 (7-52) Units/L Alkaline Phosphatase 121 H (34-104) Units/L Albumin 3.9 (3.5-5.7) g/dL - ABG Interpretation ABG results: ABG ABG pH 7.40 pH Units (7.32-7.45) 02/16/19 03:51 ABG pCO2 47 mmHg (35-45) H 02/16/19 03:51 ABG pO2 240 mmHg (85-104) H 02/16/19 03:51 ABG O2 Saturation 100 % (95-98) H 02/16/19 03:51 PT/INR, D-dimer PT 12.0 Seconds (9.4-12.1) 02/16/19 03:57 Consult Discharge Plan - Plan Referrals: Ryan Wray MD [Non-Partnered Physician] - <Santi Che - Last Filed: 02/18/19 18:56> Hospitalist Progress Note - Encounter Date of Encounter: 02/18/19 - Exam Vitals: Temp Pulse Resp BP Pulse Ox 98.5 F 91 16 135/83 96 02/18/19 02:53 02/18/19 02:53 02/18/19 02:53 02/18/19 02:53 02/18/19 02:53 - Assessment and Plan (1) Drug overdose Current Visit: Yes Status: Resolved (2) DVT prophylaxis Current Visit: Yes Status: Acute (3) Major depressive disorder, recurrent, severe w/o psychotic behavior Current Visit: Yes Status: Acute (4) Hypothyroid Current Visit: Yes Status: Chronic - Time Spent with Patient Total time spent is greater than 50% in coordination of care (as documented) at patient's floor/unit and/or counseling patient: Internal Medicine: Result - Labs CBC & Chem 7: 02/18/19 10:23 02/18/19 09:25 Labs: Short CBC 02/18/19 Range/Units 10:23 WBC 8.5 (4.3-11.1) K/mcL Hgb 11.3 L (11.5-15.4) g/dL Hct 35.1 L (35.3-44.9) % Plt Count 356 (140-400) K/mcL Neutrophils # 5.7 (1.6-8.9) K/mcL BMP 02/18/19 09:25 Sodium 139 Potassium 3.6 Chloride 101 Carbon Dioxide 26 BUN 16 Creatinine 0.93 Glucose 150 H Calcium 9.2 Liver Function 02/18/19 Range/Units 09:25 Total Bilirubin 0.4 (0.3-1.0) mg/dL AST 25 (13-39) Units/L ALT 30 (7-52) Units/L Alkaline Phosphatase 121 H (34-104) Units/L Albumin 3.9 (3.5-5.7) g/dL - ABG Interpretation ABG results: ABG ABG pH 7.40 pH Units (7.32-7.45) 02/16/19 03:51 ABG pCO2 47 mmHg (35-45) H 02/16/19 03:51 ABG pO2 240 mmHg (85-104) H 02/16/19 03:51 ABG O2 Saturation 100 % (95-98) H 02/16/19 03:51 PT/INR, D-dimer PT 12.0 Seconds (9.4-12.1) 02/16/19 03:57 - Attending Attestation I examined this patient and my medical decision-making was reviewed with the Resident Physician on 02/18/19. I agree with the documented findings, disposition and treatment plan as described except to the extent set forth below. Ms Cohen is currently admitted for intentional OD of Elavil. She remains moderate to high risk due to potential for worsening clinical status. Ms Cohen feels oK today. No fever or chills. No CP or SOB. Agreeable to go to [facility]. Exam alert COmfortable Mucus membranes dry Heart reg No wheeze abd soft I/P 1. OD of Elavil - medically stable Plan d/c to geropsych tomorrow. <Lisa Hobbs N - Last Filed: 02/18/19 14:28> (1) Drug overdose Qualifiers: Encounter type: initial encounter Injury intent: intentional self-harm Qualified Code(s): T50.902A - Poisoning by unspecified drugs, medicaments and biological substances, intentional self-harm, initial encounter <Santi Che A - Last Filed: 02/18/19 18:56> (1) Drug overdose Qualifiers: Encounter type: subsequent encounter Injury intent: intentional self-harm Qualified Code(s): T50.902D - Poisoning by unspecified drugs, medicaments and biological substances, intentional self-harm, subsequent encounter (4) Hypothyroid Qualifiers: Hypothyroidism type: acquired Qualified Code(s): E03.9 - Hypothyroidism, unspecified
[2019-02-19] MEDS: *HR* Heparin 5,000 UNIT/ML VIAL SQ SCH (05:20)
[2019-02-19] MEDS: Acetaminophen 325 MG TABLET PO PRN (05:21)
--- NOTE | 2019-02-19 11:41 | Discharge Summary ---
- NOTES TO OUTPATIENT PROVIDER Notes to Outpatient Provider: Pt admitted with intentional OD of Elavil. She was intubated and subsequently extubated. She has been transferred to inpatient psych. Date of Encounter: 02/19/19 Time of Encounter: 11:40 - Discharge Diagnosis (1) Drug overdose Priority: Primary Status: Resolved Qualifiers: Encounter type: subsequent encounter Injury intent: intentional self-harm Qualified Code(s): T50.902D - Poisoning by unspecified drugs, medicaments and biological substances, intentional self-harm, subsequent encounter (2) Major depressive disorder, recurrent, severe w/o psychotic behavior Priority: Secondary Status: Acute (3) Hypothyroid Priority: Secondary Status: Chronic Qualifiers: Hypothyroidism type: acquired Qualified Code(s): E03.9 - Hypothyroidism, unspecified Hospital course: Ms. Cohen is a 68 year old female brought to ED by EMS after intentional OD of Elavil. Ms Cohen was evaluated and intubated to protect her airway. She was admitted to ICU and subsequently extubated. She remained stable and was evaluated by psychiatry. It was felt that she would benefit from inpatient psych stay (geropsych due to her age). She was transferred to floor and remained medically stable. After discussion with psychiatry a pink slip was placed on the evening of 02/18. There were no arrangements for geropsych but patient agreed to go to for further treatment. She was discharged in stable condition. - Time Spent with Patient Total time spent providing and/or coordinating discharge services: 41min - Discharge Medications Prescriptions: New RX: Acetaminophen [Tylenol] 650 mg PO Q6H PRN tablet PRN Reason: Analgesia Continue RX: Ketoconazole 1 appl TP 3XW RX: Levothyroxine [Synthroid] 88 mcg PO DAILY RX: Oxybutynin [Ditropan] 5 mg PO HS RX: Lisinopril [Zestril] 40 mg PO DAILY RX: Estradiol 0.5 mg PO QAM RX: Diclofenac Sodium [Voltaren] 75 mg PO BID PRN PRN Reason: Pain Discontinued RX: Amitriptyline HCl 300 mg PO HS Home Medications: RX: Diclofenac Sodium [Voltaren] 75 mg PO BID PRN 02/16/19 [History] RX: Estradiol 0.5 mg PO QAM 02/16/19 [History] RX: Ketoconazole 1 appl TP 3XW 02/16/19 [History] RX: Levothyroxine [Synthroid] 88 mcg PO DAILY 02/16/19 [History] RX: Lisinopril [Zestril] 40 mg PO DAILY 02/16/19 [History] RX: Oxybutynin [Ditropan] 5 mg PO HS 02/16/19 [History] RX: Acetaminophen [Tylenol] 650 mg PO Q6H PRN tablet 02/19/19 [Rx] Allergies/Adverse Reactions: Allergy/AdvReac Type Severity Reaction Status Date / Time fentanyl [From Duragesic] AdvReac Mild "ITCH ALL Verified 02/16/19 11:57 OVER" Date of admission: 02/16/19 02:29 Primary care physician: PCP NONE Consults: 02/16/19 03:14 Consult to Pulmonology [CONS] Routine Consulting Provider: [facility] Reason for Consult: Respiratory Failure Call Completed: No 02/16/19 11:20 Consult to Psychiatry [CONS] Routine Consulting Provider: [facility] [place] Reason consult: Other Other reason and/or additional details: Patient admitted overnight for intentional overdose on amitryptiline. Patient now successfully extubated, alert and oriented, and hemodynamically stable. She states she took approximately 50 amitryptiline in order to "sleep", that she did not want to kill herself. She describes marital issues. She makes vague references to previous similar occurences. Request psychiatry assessment and recommendations. Time Notified: 11:24 Call Completed: Yes Discharging clinician: Santi Che Anticipated date of discharge: 02/19/19 - Constitutional Vitals: Temp Pulse Resp BP Pulse Ox 98.4 F 97 16 121/86 97 02/19/19 10:16 02/19/19 10:16 02/19/19 10:16 02/19/19 10:16 02/19/19 10:16 General appearance: Present: A&O X 3, pleasant, answers questions appropriately Exam: See below - Head Head exam: Present: normocephalic - Eye Eye exam: Present: EOMI, conjuntiva pink - ENT ENT exam: Present: mucous membranes moist - Respiratory Respiratory exam: Present: CTAB. Absent: rales, rhonchi, wheezes - Cardiovascular Cardiovascular exam: Present: RRR. Absent: tachycardia - GI/Abdominal GI/Abdominal exam: Present: soft. Absent: tenderness - Extremities Exam Extremities exam: Present: warm. Absent: tenderness - Neurological Exam Neurological exam: Present: alert, oriented X3, no focal deficits - Skin Skin exam: Present: dry, warm. Absent: rash - Patient Status Disposition: Transfer Psychiatric Hosp Condition: Good Functional capacity at discharge: independent ambulation Overall status at discharge: patient is progressing back to baseline - Discharge Instructions Follow Up With: Ryan Wray MD [Non-Partnered Physician] - - Diet and Activity Activity: increase activity as tolerated Diet: advance to your usual diet
[2019-02-19 15:50] VITALS: BP 125/82
== END 2019-02-19 16:30 | DRG 917 ==
LOC: SUATTDRO 02:29 → ICNU 02:29 → 3ANU 02-17 15:39
PROVIDERS: ADMIT Internal Medicine; ATTEND Internal Medicine